=== PATIENT | female | born 1985 | race Two or more races ===

== ENCOUNTER 2019-01-20 01:27 | Emergency (ER) | payer OTHER ==
[~2019-01-20] VITALS: Ht 167.6 cm; Wt 127.0 kg
--- NOTE | 2019-01-20 01:44 | NUR ---
[employer] FOR BOOKING C/O L FOREAM LACERATION, MULTIPLE R FOREARM HEMATOMA, R KNEE HEMATOMA X2 DAYS, UPPER AND LOWER BACK PAIN
[2019-01-20] MEDS ORDERED: IBUPROFEN 600 MG TABLET PO ONE ×2 (01:55→02:00)
--- NOTE | 2019-01-20 02:19 | NUR ---
wound care is provided on the LFA. area ermained clean and dry. no bleeding .no s/s of infection.
--- NOTE | 2019-01-20 02:30 | NUR ---
Patient discharged in custody w/ [employer] officers in stable condition. Written and verbal after care instructions given. Patient verbalized understanding of instruction.
[2019-01-20 02:31] VITALS: BP 137/75
== END 2019-01-20 02:34 ==
LOC: ER 01:28
DX: S51.812A Laceration without foreign body of left forearm, initial encounter (principal); Z98.890 Other specified postprocedural states; W45.8XXA Other foreign body or object entering through skin, initial encounter; Y93.89 Activity, other specified; Y92.89 Other specified places as the place of occurrence of the external cause; Y99.8 Other external cause status
CPT/HCPCS: 73090-TC